=== PATIENT | male | born 1950 | race Caucasian/White ===

== ENCOUNTER 2022-03-05 10:47 | Observation (INO) | payer MEDICARE, OTHER ==
[2022-03-05] MEDS ORDERED: MECLIZINE 25 MG TAB PO STA (11:09)
[2022-03-05 11:31] LABS: Basophils # (A) 0.1 k/uL (0-0.2); Basophils % (A) 1 %; Eosinophils # (A) 0.3 k/uL (0-0.7); Eosinophils % (A) 3 %; HCT 42.6 % (39.0-53.0); HGB 15.4 gm/dL (13.0-17.5); Lymphocytes # (A) 1.7 k/uL (1.0-4.8); Lymphocytes % (A) 19 %; MCH 31.6 pg (25.0-35.0); MCHC 36.1 g/dL (31.0-37.0); MCV 87.4 fL (80.0-100.0); Mean Platelet Volume 7.9; Monocytes # (A) 0.4 k/uL (0-1.0); Monocytes % (A) 4 %; Neutrophils # (A) 6.4 k/uL (1.3-7.7); Neutrophils % (A) 72 %; Platelet Count 175 k/uL (150-450); RBC 4.87 m/uL (4.30-5.90); RDW 13.2 % (11.5-15.5); WBC 8.9 k/uL (3.8-10.6)
[2022-03-05 11:41] LABS: ALT 35 U/L (4-49); AST 28 U/L (17-59); African American GFR (CKD) >90 (>60 ml/min/1.73 sqM); Albumin 4.2 g/dL (3.5-5.0); Alkaline Phosphatase 115 U/L (38-126); Anion Gap 9 mmol/L; Blood Urea Nitrogen 16 mg/dL (9-20); Calcium 8.8 mg/dL (8.4-10.2); Carbon Dioxide 22 mmol/L (22-30); Chloride 109 mmol/L (98-107); Glucose 181 mg/dL (74-99); Magnesium 1.7 mg/dL (1.6-2.3); Non-African American GFR(CKD) 88 (>60 ml/min/1.73 sqM); Potassium 4.6 mmol/L (3.5-5.1); Sodium 140 mmol/L (137-145); Total Bilirubin 1.1 mg/dL (0.2-1.3); Total Protein 6.7 g/dL (6.3-8.2)
--- NOTE | 2022-03-05 11:59 | XR ---
EXAMINATION TYPE: XR chest 2V DATE OF EXAM: 03/05/2022 COMPARISON: Prior chest x-ray 2012 HISTORY: Chest pain TECHNIQUE: Frontal and lateral views of the chest are obtained. FINDINGS: There is chronic parenchymal changes bilaterally redemonstrated without suspicious focal a ir space opacity, pleural effusion, or pneumothorax seen. The cardiac silhouette size is stable and upper limits of normal. Multilevel spurring in thoracic spine redemonstrated. Old fractures of the po sterior right third and fourth ribs are noted. IMPRESSION: Chronic changes without acute pulmonary process.
--- NOTE | 2022-03-05 14:13 | ED ---
General Adult HPI - General Chief complaint: Weakness Stated complaint: weakness Time Seen by Provider: 03/05/22 10:55 Source: patient, RN notes reviewed, old records reviewed Mode of arrival: EMS Limitations: no limitations - History of Present Illness Initial comments: This is a 72-year-old male presents emergency Department complaining of the room spinning. Patient states it started when he woke up this morning. Patient states anytime he moved his head or try to sit up the symptoms got worse per patient states when he tried to stand up he fell to the ground but he did not injure anything. Patient denies any headache currently. Patient states initially had a mild headache but it's much improved. Patient denies any chest pain or palpitations. Patient denies shortness of breath or difficulty breathing. Patient denies any abdominal pain. Patient states she was a little nauseated earlier but that has resolved. Patient states currently the dizziness is not as bad as it was earlier. Patient denies any ringing in ears or any new deafness. - Related Data Home Medications Medication Instructions Recorded Confirmed Atorvastatin [Lipitor] 80 mg PO DAILY 03/05/22 03/05/22 Clopidogrel [Plavix] 75 mg PO DAILY 03/05/22 03/05/22 Dulaglutide [Trulicity] 1.5 mg SQ ORR 03/05/22 03/05/22 Furosemide [Lasix] 40 mg PO DAILY 03/05/22 03/05/22 Gabapentin [Neurontin] 300 mg PO HS 03/05/22 03/05/22 Insulin Glargine,Hum.rec.anlog 55 units SQ HS 03/05/22 03/05/22 [Lantus Solostar Pen] Isosorbide Mononitrate ER [Imdur] 30 mg PO DAILY 03/05/22 03/05/22 Metoprolol Tartrate [Lopressor] 50 mg PO BID 03/05/22 03/05/22 Nitroglycerin Sl Tabs [Nitrostat] 0.4 mg SUBLINGUAL Q5M PRN 03/05/22 03/05/22 Potassium Chloride ER [K-Dur 10] 10 meq PO BID 03/05/22 03/05/22 glipiZIDE [Glucotrol] 10 mg PO DAILY 03/05/22 03/05/22 lisinopriL [Zestril] 20 mg PO DAILY 03/05/22 03/05/22 metFORMIN HCL 1,000 mg PO BID-W/MEALS 03/05/22 03/05/22 Allergies Allergy/AdvReac Type Severity Reaction Status Date / Time No Known Allergies Allergy Verified 03/05/22 12:08 Review of Systems ROS Statement: Those systems with pertinent positive or pertinent negative responses have been documented in the HPI. ROS Other: All systems not noted in ROS Statement are negative. Past Medical History Past Medical History: Heart Failure, COPD, Diabetes Mellitus, Hypertension History of Any Multi-Drug Resistant Organisms: None Reported Past Surgical History: Cholecystectomy, Hernia Repair Past Psychological History: No Psychological Hx Reported Smoking Status: Current every day smoker Past Alcohol Use History: None Reported Past Drug Use History: None Reported General Exam - General Exam Comments Initial Comments: GENERAL: Patient is well-developed and well-nourished. Patient is nontoxic and well- hydrated and is in mild distress. ENT: Neck is soft and supple. No significant lymphadenopathy is noted. Oropharynx is clear. Moist mucous membranes. Neck has full range of motion without eliciting any pain. EYES: The sclera were anicteric and conjunctiva were pink and moist. Extraocular movements were intact and pupils were equal round and reactive to light. Eyelids were unremarkable. PULMONARY: Unlabored respirations. Good breath sounds bilaterally. No audible rales rhonchi or wheezing was noted. CARDIOVASCULAR: There is a regular rate and rhythm without any murmurs gallops or rubs. ABDOMEN: Soft and nontender with normal bowel sounds. SKIN: Skin is clear with no lesions or rashes and otherwise unremarkable. NEUROLOGIC: Patient is alert and oriented x3. Cranial nerves II through XII are grossly intact. Motor and sensory are also intact. Normal speech, volume and content. Symmetrical smile. Finger to nose testing is normal bilaterally MUSCULOSKELETAL: Normal extremities with adequate strength and full range of motion. LYMPHATICS: No significant lymphadenopathy is noted PSYCHIATRIC: Normal psychiatric evaluation. Limitations: no limitations Course Vital Signs 03/05/22 03/05/22 03/05/22 10:49 12:00 14:17 Temperature 97.7 F Pulse Rate 62 72 70 Respiratory 18 18 18 Rate Blood Pressure 135/83 117/70 116/70 O2 Sat by Pulse 100 97 99 Oximetry Medical Decision Making - Medical Decision Making EKG was interpreted by me. EKG shows sinus rhythm at 66 bpm WI interval is 247 QRS is 97 Q-T intervals 390 QTC is 413. EKG shows PVCs. I interpreted the CT of the brain. CT of the brain showed no acute abnormality. Patient received Antivert however it did not help him he was unable to get up and out of bed at all. Patient sat up in bed and became severely dizzy. New. Patient did not feel safe going home so I admitted the patient. I spoke with Dr. Vega he agreed to admit the patient to the patient wrote admitting orders. - Lab Data Result diagrams: 03/05/22 11:03/05/22 11: Lab Results 03/05/22 03/05/22 03/05/22 Range/Units 11: 11: 11: WBC 8.9 (3.8-10.6) k/uL RBC 4.87 (4.30-5.90) m/uL Hgb 15.4 (13.0-17.5) gm/dL Hct 42.6 (39.0-53.0) % MCV 87.4 (80.0-100.0) fL MCH 31.6 (25.0-35.0) pg MCHC 36.1 (31.0-37.0) g/dL RDW 13.2 (11.5-15.5) % Plt Count 175 (150-450) k/uL MPV 7.9 Neutrophils % 72 % Lymphocytes % 19 % Monocytes % 4 % Eosinophils % 3 % Basophils % 1 % Neutrophils # 6.4 (1.3-7.7) k/uL Lymphocytes # 1.7 (1.0-4.8) k/uL Monocytes # 0.4 (0-1.0) k/uL Eosinophils # 0.3 (0-0.7) k/uL Basophils # 0.1 (0-0.2) k/uL PT 11.0 (9.0-12.0) sec INR 1.0 (<1.2) APTT 23.0 (22.0-30.0) sec Sodium 140 (137-145) mmol/L Potassium 4.6 (3.5-5.1) mmol/L Chloride 109 H (98-107) mmol/L Carbon Dioxide 22 (22-30) mmol/L Anion Gap 9 mmol/L BUN 16 (9-20) mg/dL Creatinine 0.86 (0.66-1.25) mg/dL Est GFR (CKD-EPI)AfAm >90 (>60 ml/min/1.73 sqM) Est GFR (CKD-EPI)NonAf 88 (>60 ml/min/1.73 sqM) Glucose 181 H (74-99) mg/dL Calcium 8.8 (8.4-10.2) mg/dL Magnesium 1.7 (1.6-2.3) mg/dL Total Bilirubin 1.1 (0.2-1.3) mg/dL AST 28 (17-59) U/L ALT 35 (4-49) U/L Alkaline Phosphatase 115 (38-126) U/L Troponin I (0.000-0.034) ng/mL Total Protein 6.7 (6.3-8.2) g/dL Albumin 4.2 (3.5-5.0) g/dL 03/05/22 Range/Units 11:22 WBC (3.8-10.6) k/uL RBC (4.30-5.90) m/uL Hgb (13.0-17.5) gm/dL Hct (39.0-53.0) % MCV (80.0-100.0) fL MCH (25.0-35.0) pg MCHC (31.0-37.0) g/dL RDW (11.5-15.5) % Plt Count (150-450) k/uL MPV Neutrophils % % Lymphocytes % % Monocytes % % Eosinophils % % Basophils % % Neutrophils # (1.3-7.7) k/uL Lymphocytes # (1.0-4.8) k/uL Monocytes # (0-1.0) k/uL Eosinophils # (0-0.7) k/uL Basophils # (0-0.2) k/uL PT (9.0-12.0) sec INR (<1.2) APTT (22.0-30.0) sec Sodium (137-145) mmol/L Potassium (3.5-5.1) mmol/L Chloride (98-107) mmol/L Carbon Dioxide (22-30) mmol/L Anion Gap mmol/L BUN (9-20) mg/dL Creatinine (0.66-1.25) mg/dL Est GFR (CKD-EPI)AfAm (>60 ml/min/1.73 sqM) Est GFR (CKD-EPI)NonAf (>60 ml/min/1.73 sqM) Glucose (74-99) mg/dL Calcium (8.4-10.2) mg/dL Magnesium (1.6-2.3) mg/dL Total Bilirubin (0.2-1.3) mg/dL AST (17-59) U/L ALT (4-49) U/L Alkaline Phosphatase (38-126) U/L Troponin I <0.012 (0.000-0.034) ng/mL Total Protein (6.3-8.2) g/dL Albumin (3.5-5.0) g/dL Disposition Clinical Impression: Vertigo Disposition: ADMITTED IP TO THIS [facility] Referrals: Arden Brice MD [Primary Care Provider] - 1-2 days Time of Disposition: 15:07
--- NOTE | 2022-03-05 14:54 | CT ---
EXAMINATION TYPE: CT brain wo con DATE OF EXAM: 03/05/2022 HISTORY: Dizziness CT DLP: 1115.7 mGycm. Automated Exposure Control for Dose Reduction was Utilized. TECHNIQUE: CT scan of the head is performed without contrast. COMPARISON: None. FINDINGS: There is no acute intracranial hemorrhage or midline shift identified. Ventricles and sul ci within normal limits in size for patient's age. Florez-white matter differentiation maintained. The globes are intact and the visualized sinuses are clear. Nasal septum slightly deviated to right of midline. IMPRESSION: No acute intracranial hemorrhage or midline shift.
[2022-03-05] MEDS ORDERED: SCOPOLAMINE 1 MG/72 HR PATCH TRANSDERM STA (15:00)
[2022-03-05] MEDS ORDERED: SODIUM CHLORIDE 0.9% 1,000 ML IV ONE (15:09)
[2022-03-05] MEDS ORDERED: MECLIZINE 25 MG TAB PO PRN (15:10)
[2022-03-05 17:53] LABS: Glucose,Whole Blood 181 mg/dL (70-110)
[2022-03-05] MEDS ORDERED: NITROGLYCERIN SL TABS 0.4 MG TAB SUBLINGUAL PRN (18:05)
[2022-03-05] MEDS ORDERED: DEXTROSE 50% SYRINGE 50 ML IVP PRN ×2 (18:06)
[2022-03-05] MEDS: INSULIN ASPART (NovoLOG) 100 UNIT/ML VIAL SQ SCH ×2 (18:44→20:30)
[2022-03-05 20:16] LABS: Glucose,Whole Blood 168 mg/dL (70-110)
[2022-03-05] MEDS: INSULIN DETEMIR (LEVEMIR) 100 UNIT/ML SYR SQ SCH (21:14)
[2022-03-05] MEDS: METOPROLOL TARTRATE 50 MG TAB PO SCH (21:15)
[2022-03-05] MEDS: POTASSIUM CHLORIDE ER 10 MEQ TAB.ER.PRT PO SCH (21:15)
[2022-03-05] MEDS: GABAPENTIN 300 MG CAP PO SCH (21:15)
[2022-03-06 06:04] LABS: Glucose,Whole Blood 137 mg/dL (70-110)
[2022-03-06] MEDS: INSULIN ASPART (NovoLOG) 100 UNIT/ML VIAL SQ SCH ×4 (06:08→21:44)
[2022-03-06] MEDS: FUROSEMIDE 40 MG TAB PO SCH (09:22)
[2022-03-06] MEDS: CLOPIDOGREL 75 MG TAB PO SCH (09:22)
[2022-03-06] MEDS: POTASSIUM CHLORIDE ER 10 MEQ TAB.ER.PRT PO SCH ×2 (09:22→21:43)
[2022-03-06] MEDS: METOPROLOL TARTRATE 50 MG TAB PO SCH ×2 (09:22→21:43)
[2022-03-06] MEDS: ISOSORBIDE MONONITRATE ER 30 MG TAB.ER.24H PO SCH (09:22)
[2022-03-06] MEDS: glipiZIDE 10 MG TAB PO SCH (09:23)
[2022-03-06] MEDS: ATORVASTATIN 80 MG TAB PO SCH (09:23)
[2022-03-06] MEDS: lisinopriL 20 MG TAB PO SCH (09:23)
[2022-03-06] MEDS: metFORMIN 500 MG TAB PO SCH ×2 (09:29→19:25)
--- NOTE | 2022-03-06 10:04 | P.CRDCN ---
History of Present Illness History of present illness: HISTORY OF PRESENTING ILLNESS This is a pleasant 72-year-old male past medical history significant for coronary artery disease status post PCI to the first obtuse marginal branch of the left circumflex, mid left circumflex, mid RCA in 2013, type 2 diabetes, hypertension, dyslipidemia, COPD, chronic nicotine dependence. He used to follow with a eyeglass inspector out of town however states that his eyeglass inspector retired a few years ago and has not followed up with someone since. We have been asked to see in consultation for first-degree AV block. Patient presents emergency department with dizziness and speech difficulty episode. She states yesterday morning he had acute onset of dizziness when he stood up. The room was spinning. It was aggravated by ambulating and walking. Also was aggravated by moving his head from side to side. He also endorsed some brief speech difficulty where he felt as if he could not get his words out. He denies any syncope, chest pain, shortness of breath, palpitations, hearing difficulty, focal weakness. He denies any history of Stroke, irregular heart rhythm. DIAGNOSTICS * EKG reveals sinus rhythm, first-degree AV block, occasional PVC. * Telemetry tracings indicate sinus rhythm with first-degree AV block and PACs and PVCs noted * Brain CT report in no acute intracranial abnormality * Chest xray no acute cardiopulmonary process * Laboratory reviewed, CBC unremarkable, troponin negative, sodium 140, potassium 4.6, BUN 16, serum creatinine 0.8 * Current home medications include metformin, potassium chloride, when necessary nitroglycerin, =Trulicity, lisinopril, metoprolol tartrate 51 g PAD, glipizide, Imdur, insulin, gabapentin, Lasix, Plavix 75 mg daily, atorvastatin 80 mg daily REVIEW OF SYSTEMS At the time of my exam: CONSTITUTIONAL: Denies fever or chills. CARDIOVASCULAR: Denies chest pain, shortness of breath, orthopnea, PND or palpit ations. RESPIRATORY: Denies cough. GASTROINTESTINAL: Denies abdominal pain, diarrhea, constipation, nausea or vomiting. MUSCULOSKELETAL: Denies myalgias. NEUROLOGIC: +dizziness, +speech difficulty brief Denies numbness, tingling, headacbe or weakness. ENDOCRINE: Denies fatigue, weight change, polydipsia or polyurina. GENITOURINARY: Denies burning, hematuria or urgency with micturation. HEMATOLOGIC: Denies history of anemia or bleeding. PHYSICAL EXAMINATION Blood pressure 124/69, heart 73, afebrile, saturations 96% on room air CONSTITUTIONAL: No apparent distress. HEENT: Head is normocephalic. Pupils are equal, round. Sclerae anicteric. Mucous membranes of the mouth are moist. No JVD. No carotid bruit. CHEST EXAMINATION: Lungs are clear to auscultation. No chest wall tenderness is noted on palpation or with deep breathing. HEART EXAMINATION: Regular rate and rhythm. S1, S2 heard. No murmurs, gallops or rub. ABDOMEN: Soft, nontender. Positive bowel sounds. EXTREMITIES: 2+ peripheral pulses, no lower extremity edema and no calf tenderness. NEUROLOGIC EXAMINATION: Patient is awake, alert and oriented x3. Patient with increased dizziness sitting up and moving his head from side to side ASSESSMENT Dizziness Brief episode of aphasia First degree AV Block Coronary artery disease status post PCI to the first obtuse marginal branch of the left circumflex, mid left circumflex, mid RCA in 2012 Type 2 diabetes Hypertension Dyslipidemia COPD Chronic nicotine dependence PLAN No inpatient cardiac workup for first degree AV Block. Continue home cardiac medications Recommend neurology consult and evaluation Obtain 2D echocardiogram and doppler study to assess cardiac structure and function. Recommend close follow up outpatient with Dr. Carranza in 1-2 weeks. Nurse practitioner note has been reviewed by physician. Signing provider agrees with the documented findings, assessment, and plan of care. Past Medical History Past Medical History: Heart Failure, COPD, Diabetes Mellitus, Hypertension History of Any Multi-Drug Resistant Organisms: None Reported Past Surgical History: Cholecystectomy, Heart Catheterization With Stent, Hernia Repair Date of Last Stent Placement:: 2012 Past Psychological History: No Psychological Hx Reported Smoking Status: Current every day smoker Past Alcohol Use History: None Reported Past Drug Use History: None Reported Medications and Allergies Home Medications Medication Instructions Recorded Confirmed Type Atorvastatin [Lipitor] 80 mg PO DAILY 03/05/22 03/05/22 History Clopidogrel [Plavix] 75 mg PO DAILY 03/05/22 03/05/22 History Dulaglutide [Trulicity] 1.5 mg SQ ORR 03/05/22 03/05/22 History Furosemide [Lasix] 40 mg PO DAILY 03/05/22 03/05/22 History Gabapentin [Neurontin] 300 mg PO HS 03/05/22 03/05/22 History Insulin Glargine,Hum.rec.anlog 55 units SQ HS 03/05/22 03/05/22 History [Lantus Solostar Pen] Isosorbide Mononitrate ER [Imdur] 30 mg PO DAILY 03/05/22 03/05/22 History Metoprolol Tartrate [Lopressor] 50 mg PO BID 03/05/22 03/05/22 History Nitroglycerin Sl Tabs [Nitrostat] 0.4 mg SUBLINGUAL Q5M PRN 03/05/22 03/05/22 History Potassium Chloride ER [K-Dur 10] 10 meq PO BID 03/05/22 03/05/22 History glipiZIDE [Glucotrol] 10 mg PO DAILY 03/05/22 03/05/22 History lisinopriL [Zestril] 20 mg PO DAILY 03/05/22 03/05/22 History metFORMIN HCL 1,000 mg PO BID-W/MEALS 03/05/22 03/05/22 History Allergies Allergy/AdvReac Type Severity Reaction Status Date / Time No Known Allergies Allergy Verified 03/05/22 12:08 Physical Exam Vitals: Vital Signs Temp Pulse Pulse Resp BP BP Pulse Ox 03/06/22 02:13 98.0 F 69 18 107/69 96 03/05/22 20:19 98.6 F 89 19 127/79 97 03/05/22 16:32 87 18 119/73 98 03/05/22 14:17 70 18 116/70 99 03/05/22 12:00 72 18 117/70 97 03/05/22 10:49 97.7 F 62 18 135/83 100 Intake and Output 03/05/22 03/06/22 03/06/22 22:59 06:59 14:59 Output Total 300 Balance -300 Output: Urine 300 Other: Voiding Method Urinal # Voids 1 Weight 112.491 kg Results 03/05/22 11:22 03/05/22 11: Cardiac Enzymes 03/05/22 03/05/22 Range/Units 11:22 11: AST 28 (17-59) U/L Troponin I <0.012 (0.000-0.034) ng/mL Coagulation 03/05/22 Range/Units 11: PT 11.0 (9.0-12.0) sec APTT 23.0 (22.0-30.0) sec CBC 03/05/22 Range/Units 11: WBC 8.9 (3.8-10.6) k/uL RBC 4.87 (4.30-5.90) m/uL Hgb 15.4 (13.0-17.5) gm/dL Hct 42.6 (39.0-53.0) % Plt Count 175 (150-450) k/uL Comprehensive Metabolic Panel 03/05/22 Range/Units 11: Sodium 140 (137-145) mmol/L Potassium 4.6 (3.5-5.1) mmol/L Chloride 109 H (98-107) mmol/L Carbon Dioxide 22 (22-30) mmol/L BUN 16 (9-20) mg/dL Creatinine 0.86 (0.66-1.25) mg/dL Glucose 181 H (74-99) mg/dL Calcium 8.8 (8.4-10.2) mg/dL AST 28 (17-59) U/L ALT 35 (4-49) U/L Alkaline Phosphatase 115 (38-126) U/L Total Protein 6.7 (6.3-8.2) g/dL Albumin 4.2 (3.5-5.0) g/dL Current Medications Generic Name Dose Route Start Last Admin Trade Name Freq PRN Reason Stop Dose Admin Atorvastatin Calcium 80 mg 03/06/22 09:00 Atorvastatin 80 Mg Tab PO DAILY [facility] Clopidogrel Bisulfate 75 mg 03/06/22 09:00 Clopidogrel 75 Mg Tab PO DAILY [facility] Dextrose/Water 25 ml 03/05/22 18:06 Dextrose 50% Syringe 50 Ml IVP PER PROTOCOL PRN Hypoglycemia Protocol Dextrose/Water 50 ml 03/05/22 18:06 Dextrose 50% Syringe 50 Ml IVP PER PROTOCOL PRN Hypoglycemia Protocol Furosemide 40 mg 03/06/22 09:00 Furosemide 40 Mg Tab PO DAILY [facility] Gabapentin 300 mg 03/05/22 21:00 03/05/22 21:15 Gabapentin 300 Mg Cap PO 300 mg HS [facility] Administration Glipizide 10 mg 03/06/22 09:00 Glipizide 10 Mg Tab PO DAILY [facility] Insulin Aspart 0 unit 03/05/22 18:06 03/06/22 06:08 Insulin Aspart (Novolog) 100 Unit/Ml Vial SQ Not Given ACHS [facility] Protocol Insulin Detemir 55 unit 03/05/22 21:00 03/05/22 21:14 Insulin Detemir (Levemir) 100 Unit/Ml Syr SQ 55 unit HS [facility] Administration Isosorbide Mononitrate 30 mg 03/06/22 09:00 Isosorbide Mononitrate Er 30 Mg Tab.Er.24h PO DAILY [facility] Lisinopril 20 mg 03/06/22 09:00 Lisinopril 20 Mg Tab PO DAILY [facility] Meclizine HCl 25 mg 03/05/22 15:10 Meclizine 25 Mg Tab PO TID PRN Vertigo Metformin HCl 1,000 mg 03/06/22 07:30 Metformin 500 Mg Tab PO BID-W/MEALS [facility]YANNA Metoprolol Tartrate 50 mg 03/05/22 21:00 03/05/22 21:15 Metoprolol Tartrate 50 Mg Tab PO 50 mg BID [facility]AN[facility] Administration Nitroglycerin 0.4 mg 03/05/22 18:05 Nitroglycerin Sl Tabs 0.4 Mg Tab SUBLINGUAL Q5M PRN Chest Pain Dulaglutide [ 1.5 mg 03/10/22 09:00 Trulicity] 1.5 Mg/0. SQ 5 Ml ORR [facility] Potassium Chloride 10 meq 03/05/22 21:00 03/05/22 21:15 Potassium Chloride Er 10 Meq Tab.Er.Prt PO 10 meq BID [facility]AN[facility] Administration Intake and Output 03/05/22 03/06/22 03/06/22 22:59 06:59 14:59 Output Total 300 Balance -300 Output: Urine 300 Other: Voiding Method Urinal # Voids 1 Weight 112.491 kg 03/05/22 11:22 03/05/22 11:22
[2022-03-06 12:18] LABS: Glucose,Whole Blood 272 mg/dL (70-110)
--- NOTE | 2022-03-06 12:32 | US ---
EXAMINATION TYPE: US carotid duplex BILAT DATE OF EXAM: 03/06/2022 COMPARISON: NONE CLINICAL HISTORY: 72-year-old male, ?TIA, vertigo, no history of stroke TECHNIQUE: Carotid duplex ultrasound examination. Indirect Doppler criteria was utilized. FINDINGS: EXAM MEASUREMENTS: RIGHT: Peak Systolic Velocity (PSV) cm/sec ----- Right CCA: 89.2 ----- Right ICA: 87.8 ----- Right ECA: 93.6 ICA/CCA ratio: 1.0 RIGHT: End Diastole cm/sec ----- Right CCA: 13.3 ----- Right ICA: 27.6 ----- Right ECA: 8.1 LEFT: Peak Systolic Velocity (PSV) cm/sec ----- Left CCA: 99.3 ----- Left ICA: 94.5 ----- Left ECA: 82.3 ICA/CCA ratio: 1.0 LEFT: End Diastole cm/sec ----- Left CCA: 14.6 ----- Left ICA: 29.1 ----- Left ECA: 9.0 VERTEBRALS (direction of flow): Right Vertebral: Antegrade Left Vertebral: Antegrade Rhythm: Normal PROMOTIONS SPECIALIST NOTES: mild heterogeneous plaque with no significant stenosis IMPRESSION: No hemodynamically significant internal carotid artery stenosis on either side. Criteria for Assigning % of Stenosis / Diameter reduction (Estimation based on the indirect measurements of the internal carotid artery velocities (ICA PSV). 1. Normal (no stenosis)=ICA PSV < 125 cm/s: ratio < 2.0: ICA EDV<40 cm/s. 2. Less than 50% stenosis=ICA PSV < 125 cm/s: ratio < 2.0: ICA EDV<40 cm/s. 3. 50 to 69% stenosis=ICA PSV of 125 to 230 cm/s: ration 2.0 ? 4.0: ICA EDV 40-100 cm/s. 4. Greater than 70% stenosis to near occlusion= ICA PSV > 230 cm/s: ratio > 4.0: ICA EDV > 100 cm/s. 5. Near occlusion= ICA PSV velocities may be low or undetectable: variable ratio and ICA EDV. 6. Total occlusion=unable to detect flow.
[2022-03-06] MEDS: ASPIRIN 81 MG PO SCH (13:10)
--- NOTE | 2022-03-06 13:31 | MR ---
EXAMINATION TYPE: MR brain wo con DATE OF EXAM: 03/06/2022 12:54 PM COMPARISON: NONE HISTORY: Vertigo, ?STROKE/TIA FINDINGS: The ventricles, basal cisterns and sulci overlying the cerebral convexities are mildly enlarged. There is evidence of mild periventricular white matter ischemic demyelination. Remote deep white matter insults are also noted. No acute edema is seen on diffusion weighted imaging. There is no evidence for midline shift or mass effect. Acute intracranial hemorrhage or extra-axial collection is not evident. The paranasal sinuses and mastoid air cells are well-aerated. IMPRESSION: Age-related atrophic and chronic small vessel ischemic change. No acute intracranial process at this time.
--- NOTE | 2022-03-06 15:48 | P.CNNES ---
History of Present Illness Consult date: 03/06/22 Requesting physician: Deangelo Baez Reason for Consult: Intractable vertigo History of Present Illness: Patient is a 72-year-old male with history of hypertension, diabetes, who came to the hospital by ambulance yesterday at 10:47 PM for vertigo. Patient states that the night before the last, he went to bed at 9 PM in usual state of health. Yesterday at 4 AM he tried to get up to go to the bathroom and felt very dizzy, everything was spinning, he fell back in the bed. He had to go to the bathroom, tried to hold onto the plummer, and fell 4-5 times while going to and coming back from the bathroom. He laid in the bed until 9 AM, then called his [id number], who called the ambulance and patient was brought to the hospital. Patient says that he continued spinning, couldn't hold balance and the spinning was continuous. EMS flow sheet not available in the chart. Vital signs on arrival with blood pressure 135/83, pulse rate 62 temperature 97.7. Blood test shows normal CBC, PT/PTT, normal chem 20, troponin. CT head revealed no acute intracranial process. I personally reviewed CT head, agree with the findings. Visualized paranasal sinuses are clear. External auditory canal is clear. EKG shows sinus rhythm with first-degree AV block. Chest x-ray showed chronic changes without acute pulmonary process. Patient states that his symptoms started improving slowly yesterday. He is much better this morning on waking up. At present patient states that he is doing much better, but he still gets dizzy, if he gets up too fast. Not as bad as before however. He denies any numbness or tingling of the extremities or any focal weakness. He admitted to having some slurred speech "a little bit", but not bad. He also admits to having some double vision, which was transient, lasted for about 2 minutes. He had nausea but no vomiting. Patient states that now he can sit and stand up, becomes dizzy for a short while and then it goes away. He denies any recent upper respiratory infection or cold symptoms. He denies ever any history of vertigo. Denies any pressure or pain in the ears. He gets tinnitus once in a while. Patient's home medications include Trulicity, Glucotrol, lisinopril, metoprolol, Lipitor 80 mg, Plavix 75 mg, Lasix 40 mg, gabapentin 300 mg at bedtime, insulin, isosorbide, metformin, potassium. Patient states that he also takes aspirin 81 mg daily along with Plavix. Patient smokes 2-3 cigars per day and 2 pipes per day. He has been doing it for last 3-4 years. Denies any tobacco use otherwise. Patient does not drink alcohol, does not do any drugs. He has history of diabetes for last 10-14 years, also has hypertension. Review of Systems Constitutional: Denies chills, Denies fever Eyes: bilateral diplopia (Transient, resolved now.), denies blurred vision, denies pain Ears, nose, mouth and throat: Denies headache, Denies sore throat Cardiovascular: Denies chest pain, Denies shortness of breath Respiratory: Denies cough Gastrointestinal: Denies abdominal pain, Denies diarrhea, Denies nausea, Denies vomiting Musculoskeletal: Denies myalgias Integumentary: Denies pruritus, Denies rash Neurological: Reports as per HPI Psychiatric: Denies anxiety, Denies depression Endocrine: Denies fatigue, Denies weight change Past Medical History Past Medical History: Heart Failure, COPD, Diabetes Mellitus, Hypertension History of Any Multi-Drug Resistant Organisms: None Reported Past Surgical History: Cholecystectomy, Heart Catheterization With Stent, Hernia Repair Date of Last Stent Placement:: 2012 Past Psychological History: No Psychological Hx Reported Smoking Status: Current every day smoker Past Alcohol Use History: None Reported Past Drug Use History: None Reported Medications and Allergies Home Medications Medication Instructions Recorded Confirmed Type Atorvastatin [Lipitor] 80 mg PO DAILY 03/05/22 03/05/22 History Clopidogrel [Plavix] 75 mg PO DAILY 03/05/22 03/05/22 History Dulaglutide [Trulicity] 1.5 mg SQ ORR 03/05/22 03/05/22 History Furosemide [Lasix] 40 mg PO DAILY 03/05/22 03/05/22 History Gabapentin [Neurontin] 300 mg PO HS 03/05/22 03/05/22 History Insulin Glargine,Hum.rec.anlog 55 units SQ HS 03/05/22 03/05/22 History [Lantus Solostar Pen] Isosorbide Mononitrate ER [Imdur] 30 mg PO DAILY 03/05/22 03/05/22 History Metoprolol Tartrate [Lopressor] 50 mg PO BID 03/05/22 03/05/22 History Nitroglycerin Sl Tabs [Nitrostat] 0.4 mg SUBLINGUAL Q5M PRN 03/05/22 03/05/22 History Potassium Chloride ER [K-Dur 10] 10 meq PO BID 03/05/22 03/05/22 History glipiZIDE [Glucotrol] 10 mg PO DAILY 03/05/22 03/05/22 History lisinopriL [Zestril] 20 mg PO DAILY 03/05/22 03/05/22 History metFORMIN HCL 1,000 mg PO BID-W/MEALS 03/05/22 03/05/22 History Allergies Allergy/AdvReac Type Severity Reaction Status Date / Time No Known Allergies Allergy Verified 03/05/22 12:08 Physical Examination - Vital Signs Vital Signs: Vital Signs Temp Pulse Pulse Resp BP BP Pulse Ox 03/06/22 07:00 99.1 F 73 18 124/69 96 03/06/22 02:13 98.0 F 69 18 107/69 96 03/05/22 20:19 98.6 F 89 19 127/79 97 03/05/22 16:32 87 18 119/73 98 03/05/22 14:17 70 18 116/70 99 03/05/22 12:00 72 18 117/70 97 03/05/22 10:49 97.7 F 62 18 135/83 100 Intake and Output 03/05/22 03/06/22 03/06/22 22:59 06:59 14:59 Output Total 300 Balance -300 Output: Urine 300 Other: Voiding Method Urinal # Voids 1 Weight 112.491 kg Patient is an elderly male, in no acute distress. Patient is alert awake oriented to time place and person. Speech and language functions are normal. Patient can name and repeat very well. No aphasia or dysarthria. Attention, concentration and fund of knowledge is adequate. On cranial nerve examination, pupils are equal, round and reacting to light, visual perales are full on confrontation, with no neglect on double simultaneous stimulation. Extraocular muscles are intact with no nystagmus. Face is symmetric, tongue protrudes to the midline. Palatal elevation and sensation normal, hearing and shoulder shrug normal, facial sensation normal. On muscle strength testing, there is no pronator drift and the strength is normal in arms and legs distally and proximally. Deep tendon reflexes are symmetric, hypoactive and plantars are downgoing bilaterally. Sensory to touch is equal with no neglect on double simultaneous stimulation. Cerebellar function showed no ataxia for [id number] testing. No dysdiadochokinesia. No ataxia for aead-qu-yfwf testing on either side. Tone and bulk of muscles normal. Gait deferred.. On general examination, there is no carotid bruit or murmur, S1-S2 audible. Chest is clear on consultation. Abdomen is soft nontender. No organomegaly, bowel sounds present. Peripheral pulses are present. No edema. Results - Laboratory Findings CBC and BMP: 03/05/22 11:03/05/22 11: Abnormal Lab Findings: Abnormal Labs 03/05/22 03/05/22 03/05/22 17:47 20:15 Chloride 109 H Glucose 181 H POC Glucose (mg/dL) 181 H 168 H 03/06/22 06:02 Chloride Glucose POC Glucose (mg/dL) 137 H Assessment and Plan Assessment: * Acute onset of vertigo, with nausea, that lasted for several hours. Symptoms have remarkably improved. Although symptoms are suggestive of possible l abyrinthitis, however patient admits to having transient slurred speech and transient diplopia, which raises concern for TIA in the posterior circulation. * Diabetes * Hypertension Plan: * Patient does have multiple vascular risk factors. We will check MRI of the brain to rule out CVA. * Carotid Doppler, rule out stenosis. * 2-D echo rule out embolic source. * Hemoglobin A1c, fasting lipid panel * B12, folate. * Telemetric monitoring. * Patient is already taking dual antiplatelet medication including aspirin 81 mg and Plavix 75 mg. These will be continued pending above test results. * Suggest meclizine as needed for dizziness/vertigo. * Neurology will follow. Thank you for the consult.
--- NOTE | 2022-03-06 17:36 | P.HPIM ---
History of Present Illness H&P Date: 03/06/22 Chief Complaint: Head spinning This is a pleasant 72-year-old patient, follows with Dr. Brice. Chronic stable medical conditions include CHF EF not known, COPD, diabetes, hypertension, CAD with stent. Patient suddenly noticed that things are spinning around. He had some slurring of speech. Last her for a few hours. Could not walk. No ringing in the ears. No change in vision. Finally settled down. Computed tomography scan of the ER unremarkable. Feeling better this morning. Able to walk to the bathroom. Neurology consulted. 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 No alcohol. Smokes 2-3 cigars a day. Physical examination: VITAL SIGNS: 97.7, 62, 18, 135/83, 100% on room air GENERAL: BMI 34.6, sitting on edge of the bed awake, tired. EYES: Pupils equal. Conjunctiva normal. HEENT: External appearance of nose and ears normal, oral cavity grossly normal. NECK: JVD not raised; masses not palpable. HEART: First and second heart sounds are normal; no edema. LUNGS: Respiratory rate normal; clear to auscultation. ABDOMEN: Soft, nontender, liver spleen not palpable, no masses palpable. PSYCH: Alert and oriented x3; mood and affect normal. MUSCULOSKELETAL:No Clubbing/cyanosis;muscles-grossly intact, evidence of OA NEUROLOGICAL: Cranial nerves grossly intact; no facial asymmetry, power and sensation grossly intact. LYMPHATICS: No lymph nodes palpable in the axilla and neck INVESTIGATIONS, reviewed in the clinical context: WBC 8.9 hemoglobin 15.4 platelets 175 potassium 4.6 creatinine 0.86 Troponin I less than 0.012 EKG tracing personally reviewed by me-normal sinus rhythm. PVC. First-degree AV block. Chest x-ray film personally reviewed by me-no obvious infiltrate CT brain: Unremarkable Assessment and plan: -Patient presented with acute onset of severe vertigo. Patient is not even able to walk. Worse with movement. This could be acute labyrinthitis. Posterior circulation cerebellar ischemia to be ruled out. No clinical cerebellar signs. Carotid Doppler. Neuro checks. MRI brain. Neurology consult. -Hyperlipidemia Lipitor -CAD with stent Plavix, Lopressor -Diabetic peripheral neuropathy Neurontin -Diabetes mellitus type 2, chronically on insulin Lantus. Follow sliding scale insulin. trulicity. Metformin -Essential hypertension Lopressor, Zestril Resume home medications. Accu-Cheks. Sliding scale. MRI brain. Carotid Doppler. Consultation to neurology oncology. 2-D echo. Antivert when necessary. Care was discussed with the patient. Questions answered. Past Medical History Past Medical History: Heart Failure, COPD, Diabetes Mellitus, Hypertension History of Any Multi-Drug Resistant Organisms: None Reported Past Surgical History: Cholecystectomy, Heart Catheterization With Stent, Hernia Repair Date of Last Stent Placement:: 2012 Past Psychological History: No Psychological Hx Reported Smoking Status: Current every day smoker Past Alcohol Use History: None Reported Past Drug Use History: None Reported Medications and Allergies Home Medications Medication Instructions Recorded Confirmed Type Atorvastatin [Lipitor] 80 mg PO DAILY 03/05/22 03/05/22 History Clopidogrel [Plavix] 75 mg PO DAILY 03/05/22 03/05/22 History Dulaglutide [Trulicity] 1.5 mg SQ ORR 03/05/22 03/05/22 History Furosemide [Lasix] 40 mg PO DAILY 03/05/22 03/05/22 History Gabapentin [Neurontin] 300 mg PO HS 03/05/22 03/05/22 History Insulin Glargine,Hum.rec.anlog 55 units SQ HS 03/05/22 03/05/22 History [Lantus Solostar Pen] Isosorbide Mononitrate ER [Imdur] 30 mg PO DAILY 03/05/22 03/05/22 History Metoprolol Tartrate [Lopressor] 50 mg PO BID 03/05/22 03/05/22 History Nitroglycerin Sl Tabs [Nitrostat] 0.4 mg SUBLINGUAL Q5M PRN 03/05/22 03/05/22 History Potassium Chloride ER [K-Dur 10] 10 meq PO BID 03/05/22 03/05/22 History glipiZIDE [Glucotrol] 10 mg PO DAILY 03/05/22 03/05/22 History lisinopriL [Zestril] 20 mg PO DAILY 03/05/22 03/05/22 History metFORMIN HCL 1,000 mg PO BID-W/MEALS 03/05/22 03/05/22 History Allergies Allergy/AdvReac Type Severity Reaction Status Date / Time No Known Allergies Allergy Verified 03/05/22 12:08 Physical Exam Vitals: Vital Signs Temp Pulse Pulse Resp BP BP Pulse Ox 03/06/22 07:00 99.1 F 73 18 124/69 96 03/06/22 02:13 98.0 F 69 18 107/69 96 03/05/22 20:19 98.6 F 89 19 127/79 97 03/05/22 16:32 87 18 119/73 98 03/05/22 14:17 70 18 116/70 99 03/05/22 12:00 72 18 117/70 97 Intake and Output 03/05/22 03/06/22 03/06/22 22:59 06:59 14:59 Output Total 300 Balance -300 Output: Urine 300 Other: Voiding Method Urinal # Voids 1 Weight 112.491 kg Results CBC & Chem 7: 03/05/22 11:22 03/05/22 11:22 Labs: Abnormal Lab Results - Last 24 Hours (Table) 03/05/22 03/05/22 03/05/22 Range/Units 11: 17:47 20:15 Chloride 109 H (98-107) mmol/L Glucose 181 H (74-99) mg/dL POC Glucose (mg/dL) 181 H 168 H (70-110) mg/dL 03/06/22 Range/Units 06:02 Chloride (98-107) mmol/L Glucose (74-99) mg/dL POC Glucose (mg/dL) 137 H (70-110) mg/dL
[2022-03-06 17:40] LABS: Glucose,Whole Blood 112 mg/dL (70-110)
[2022-03-06] MEDS: ENOXAPARIN 40 MG/0.4 ML SYRINGE SQ SCH (19:25)
[2022-03-06 21:07] LABS: Glucose,Whole Blood 167 mg/dL (70-110)
--- NOTE | 2022-03-06 21:18 | CA ---
Transthoracic Echo Report Name: Jose Alejandro Martines Age: 72 Gender: M : 1950 Exam Date: 03/06/2022 10:41 Exam Location: [facility] Ht (in): 64 Wt (lb): 248 Ordering Physician: Flory Greene Attending/Referring Phys: Health Educator Berta Asher, NICK Procedure CPT: Indications: LV function, workup for TIA vs vertigo Cardiac Hx: Technical Quality: Technically difficult study Contrast 1: Lumason Total Dose (mL): 4 Contrast 2: Total Dose (mL): MEASUREMENTS (Male / Female) Normal Values 2D ECHO LV Diastolic Diameter PLAX 4.6 cm 4.2 - 5.9 / 3.9 - 5.3 cm LV Systolic Diameter PLAX 3.4 cm IVS Diastolic Thickness 1.2 cm 0.6 - 1.0 / 0.6 - 0.9 cm LVPW Diastolic Thickness 1.6 cm 0.6 - 1.0 / 0.6 - 0.9 cm LV Relative Wall Thickness 0.6 RV Internal Dim ED PLAX 2.3 cm LA Systolic Diameter LX 4.3 cm 3.0 - 4.0 / 2.7 - 3.8 cm M-MODE Aortic Root Diameter MM 4.0 cm LA Systolic Diameter MM 3.0 cm LA Ao Ratio MM 0.7 MV E Point Septal Separation 0.5 cm AV Cusp Separation MM 2.0 cm FINDINGS Left Ventricle Mildly increased septal wall thickness. Left ventricular ejection fraction is estimated at 55 %. Left ventricular cavity size normal. Right Ventricle Normal right ventricular size and function. Right ventricular systolic pressure within normal limits. Right Atrium Normal right atrial size. Left Atrium Mildly increased left atrial diameter. Mitral Valve Structurally normal mitral valve. Mild mitral regurgitation. Aortic Valve Trileaflet aortic valve. Tricuspid Valve Structurally normal tricuspid valve. Mild tricuspid regurgitation. Pulmonic Valve Pulmonic valve not well visualized. Pericardium Echo free space anterior to the right ventricle likely represents a fat pad. Aorta Normal size aortic root and proximal ascending aorta. CONCLUSIONS Normal LV size and systolic function. Mild mitral and tricuspid insufficiency. No clearcut evidence of pericardial effusion. Possible fat pad Previewed by: Dr. Neptali Carranza MD (Electronically Signed) Final Date: 06 March 2022 21:17
[2022-03-06] MEDS: GABAPENTIN 300 MG CAP PO SCH (21:43)
[2022-03-06] MEDS: INSULIN DETEMIR (LEVEMIR) 100 UNIT/ML SYR SQ SCH ×2 (21:43→21:48)
[2022-03-07 03:24] VITALS: RESP 17
[2022-03-07 06:24] LABS: Glucose,Whole Blood 147 mg/dL (70-110)
[2022-03-07] MEDS: INSULIN ASPART (NovoLOG) 100 UNIT/ML VIAL SQ SCH (06:28)
[2022-03-07] MEDS: metFORMIN 500 MG TAB PO SCH (06:34)
--- NOTE | 2022-03-07 09:48 | P.PN ---
Subjective This is a pleasant 72-year-old male past medical history significant for coronary artery disease status post PCI to the first obtuse marginal branch of the left circumflex, mid left circumflex, mid RCA in 2013, type 2 diabetes, hypertension, dyslipidemia, COPD, chronic nicotine dependence. He used to follow with a iron piler out of town however states that his iron piler retired a few years ago and has not followed up with someone since. We have been asked to see in consultation for first-degree AV block. Patient presents emergency department with dizziness and speech difficulty episode. She states yesterday morning he had acute onset of dizziness when he stood up. The room was spinning. It was aggravated by ambulating and walking. Also was aggravated by moving his head from side to side. He also endorsed some brief speech diff iculty where he felt as if he could not get his words out. He denies any syncope, chest pain, shortness of breath, palpitations, hearing difficulty, focal weakness. He denies any history of Stroke, irregular heart rhythm. 03/07/2022 Patient seen and examined at bedside, no acute distress. He states his dizziness has resolved. Telemetry reviewed patient continues to be in sinus rhythm with first degree AV block. Blood pressure 119/73, heart rate 87 Echocardiogram revealed EF 55%, mild mitral regurgitation, mild tricuspid regurgitation, carotid ultrasound reported no hemodynamically significant internal carotid artery stenosis bilaterally. MRI of the brain reported no acute intracranial abnormality. PHYSICAL EXAMINATION Vitals reviewed CONSTITUTIONAL: No apparent distress. HEENT: Head is normocephalic. No JVD. CHEST EXAMINATION: Lungs are clear to auscultation. No chest wall tenderness is noted on palpation or with deep breathing. HEART EXAMINATION: Regular rate and rhythm. S1, S2 heard. No murmurs, gallops or rub. ABDOMEN: Soft, nontender. Positive bowel sounds. EXTREMITIES: 2+ peripheral pulses, no lower extremity edema and no calf tenderness. NEUROLOGIC EXAMINATION: Patient is awake, alert and oriented x3. Patient with increased dizziness sitting up and moving his head from side to side ASSESSMENT Dizziness Brief episode of aphasia First degree AV Block Coronary artery disease status post PCI to the first obtuse marginal branch of the left circumflex, mid left circumflex, mid RCA in 2012 Type 2 diabetes Hypertension Dyslipidemia COPD Chronic nicotine dependence PLAN No inpatient cardiac workup for first degree AV Block. Continue home cardiac medications. Echocardiogram obtained and reviewed No further inpatient workup from a cardiology perspective. Recommend close follow up with a iron piler outpatient, patient may follow up with Dr. Carranza in 1-2 weeks. We will follow the patient as needed. Please reconsult if needed. Nurse practitioner note has been reviewed by physician. Signing provider agrees with the documented findings, assessment, and plan of care. Objective - Vital Signs Vital signs: Vital Signs Temp 97.8 F 03/07/22 02:55 Pulse 69 03/07/22 02:55 Resp 17 03/07/22 02:55 BP 105/64 03/07/22 02:55 Pulse Ox 95 03/07/22 02:55 FiO2 Intake & Output 03/06/22 03/07/22 03/07/22 18:59 06:59 18:59 Output Total 250 Balance -250 Output: Urine 250 Other: Voiding Method Urinal # Voids 2 1 - Labs CBC & Chem 7: 03/05/22 11:22 03/05/22 11:22 Labs: Abnormal Lab Results - Last 24 Hours (Table) 03/06/22 03/06/22 03/06/22 Range/Units 12:15 17:33 21:06 POC Glucose (mg/dL) 272 H 112 H 167 H (70-110) mg/dL 03/07/22 Range/Units 06:23 POC Glucose (mg/dL) 147 H (70-110) mg/dL
[2022-03-07 10:26] VITALS: TEMP 97.6
[2022-03-07 10:47] VITALS: BP 110/64; PULSE 66
[2022-03-07] MEDS: ASPIRIN 81 MG PO SCH (10:53)
[2022-03-07] MEDS: ATORVASTATIN 80 MG TAB PO SCH (10:54)
[2022-03-07] MEDS: CLOPIDOGREL 75 MG TAB PO SCH (10:55)
[2022-03-07] MEDS: FUROSEMIDE 40 MG TAB PO SCH (10:56)
[2022-03-07] MEDS: glipiZIDE 10 MG TAB PO SCH (10:57)
[2022-03-07] MEDS: POTASSIUM CHLORIDE ER 10 MEQ TAB.ER.PRT PO SCH (10:58)
[2022-03-07] MEDS: ENOXAPARIN 40 MG/0.4 ML SYRINGE SQ SCH (10:59)
[2022-03-07 11:00] LABS: Chol/HDL Ratio 2.88 Ratio; LDL Cholesterol,Calculated 28.4 mg/dL (0.0-131.0)
[2022-03-07] MEDS: METOPROLOL TARTRATE 50 MG TAB PO SCH (12:14)
[2022-03-07] MEDS: ISOSORBIDE MONONITRATE ER 30 MG TAB.ER.24H PO SCH (12:14)
[2022-03-07] MEDS: lisinopriL 20 MG TAB PO SCH (12:14)
--- NOTE | 2022-03-07 15:40 | P.DS ---
Providers Date of admission: 03/05/22 15:09 Expected date of discharge: 03/07/22 Attending physician: Matthew Vega Consults: 03/05/22 15:11 Consult Physician Urgent Consulting Provider: Betsy Wilkins Consult Reason/Comments: Intractable vertigo Do you want consulting provider notified?: Yes 03/05/22 18:09 Consult Physician Urgent Consulting Provider: Neptali Carranza Consult Reason/Comments: First degree heart block Do you want consulting provider notified?: Yes Primary care physician: [facility] Course: Chief Complaint: Head spinning This is a pleasant 72-year-old patient, follows with Dr. Brice. Chronic stable medical conditions include CHF EF not known, COPD, diabetes, hypertension, CAD with stent. Patient suddenly noticed that things are spinning around. He had some slurring of speech. Last her for a few hours. Could not walk. No ringing in the ears. No change in vision. Finally settled down. Computed tomography scan of the ER unremarkable. Feeling better this morning. Able to walk to the bathroom. Neurology consulted. Admitted with a diagnosis of acute labyrinthitis. 03/07/2022: Doing well. Back to his baseline. Counseled about smoking. MRI of the brain, carotid Doppler. Unremarkable. Cleared for discharge. 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 Lives alone. No alcohol. Smokes 2-3 cigars a day. Physical examination: VITAL SIGNS: 97.6, 77, 17, 110/64, 97% room air GENERAL: Sitting up in chair, comfortable EYES: Pupils equal. Conjunctiva normal. HEENT: External appearance of nose and ears normal, oral cavity grossly normal. NECK: JVD not raised; masses not palpable. HEART: First and second heart sounds are normal; no edema. LUNGS: Respiratory rate normal; clear to auscultation. ABDOMEN: Soft, nontender, liver spleen not palpable, no masses palpable. PSYCH: Alert and oriented x3; mood and affect normal. MUSCULOSKELETAL:No Clubbing/cyanosis;muscles-grossly intact, evidence of OA INVESTIGATIONS, reviewed in the clinical context: Brain MRi: Negative for acute event Carotid Doppler: No stenosis reported 2-D echocardiogram: EF 55%. WBC 8.9 hemoglobin 15.4 platelets 175 potassium 4.6 creatinine 0.86 Troponin I less than 0.012 EKG tracing personally reviewed by me-normal sinus rhythm. PVC. First-degree AV block. Chest x-ray film personally reviewed by me-no obvious infiltrate CT brain: Unremarkable Assessment and plan: -Acute labyrinthitis on in improved -Hyperlipidemia Lipitor -Chronic nicotine dependence, cigarette smoker Nicotine patch -CAD with stent Plavix, Lopressor -Diabetic peripheral neuropathy Neurontin -Diabetes mellitus type 2, chronically on insulin Lantus. Follow sliding scale insulin. trulicity. Metformin -Essential hypertension Lopressor, Zestril Disposition: Home Plan - Discharge Summary New Discharge Prescriptions: New Aspirin 81 mg PO DAILY tab Meclizine [Antivert] 25 mg PO TID PRN #20 tab PRN Reason: Vertigo Continue Dulaglutide [Trulicity] 1.5 mg SQ ORR glipiZIDE [Glucotrol] 10 mg PO DAILY lisinopriL [Zestril] 20 mg PO DAILY Metoprolol Tartrate [Lopressor] 50 mg PO BID Atorvastatin [Lipitor] 80 mg PO DAILY Clopidogrel [Plavix] 75 mg PO DAILY Furosemide [Lasix] 40 mg PO DAILY Gabapentin [Neurontin] 300 mg PO HS Insulin Glargine,Hum.rec.anlog [Lantus Solostar Pen] 55 units SQ HS Isosorbide Mononitrate ER [Imdur] 30 mg PO DAILY metFORMIN HCL 1,000 mg PO BID-W/MEALS Nitroglycerin Sl Tabs [Nitrostat] 0.4 mg SUBLINGUAL Q5M PRN PRN Reason: Chest Pain Potassium Chloride ER [K-Dur 10] 10 meq PO BID Discharge Medication List Atorvastatin [Lipitor] 80 mg PO DAILY 03/05/22 [History] Clopidogrel [Plavix] 75 mg PO DAILY 03/05/22 [History] Dulaglutide [Trulicity] 1.5 mg SQ ORR 03/05/22 [History] Furosemide [Lasix] 40 mg PO DAILY 03/05/22 [History] Gabapentin [Neurontin] 300 mg PO HS 03/05/22 [History] Insulin Glargine,Hum.rec.anlog [Lantus Solostar Pen] 55 units SQ HS 03/05/22 [History] Isosorbide Mononitrate ER [Imdur] 30 mg PO DAILY 03/05/22 [History] Metoprolol Tartrate [Lopressor] 50 mg PO BID 03/05/22 [History] Nitroglycerin Sl Tabs [Nitrostat] 0.4 mg SUBLINGUAL Q5M PRN 03/05/22 [History] Potassium Chloride ER [K-Dur 10] 10 meq PO BID 03/05/22 [History] glipiZIDE [Glucotrol] 10 mg PO DAILY 03/05/22 [History] lisinopriL [Zestril] 20 mg PO DAILY 03/05/22 [History] metFORMIN HCL 1,000 mg PO BID-W/MEALS 03/05/22 [History] Aspirin 81 mg PO DAILY tab 03/07/22 [Rx] Meclizine [Antivert] 25 mg PO TID PRN #20 tab 03/07/22 [Rx] Follow up Appointment(s)/Referral(s): Neptali Carranza MD [STAFF PHYSICIAN] - 1 Week (Office will call Pt with appointment ) Arden rBice MD [Primary Care Provider] - 1-2 days Patient Instructions/Handouts: Vertigo (DC) Discharge Disposition: HOME SELF-CARE
[2022-03-10] MEDS ORDERED: Dulaglutide [Trulicity] 1.5 MG/0.5 ML SQ SCH (09:00)
--- NOTE | 2022-03-15 10:12 | P.PN ---
Subjective Progress Note Date: 03/07/22 Patient was seen for a follow-up. Patient states the vertigo has resolved. No news concerns. Patient wants to go home. Objective - Vital Signs Vital signs: Vital Signs Temp 97.8 F 03/07/22 02:55 Pulse 69 03/07/22 02:55 Resp 17 03/07/22 02:55 BP 105/64 03/07/22 02:55 Pulse Ox 95 03/07/22 02:55 FiO2 Intake & Output 03/06/22 03/07/22 03/07/22 18:59 06:59 18:59 Output Total 250 Balance -250 Output: Urine 250 Other: Voiding Method Urinal # Voids 2 1 - Exam Patient's mental status, speech and language functions are normal. Cranial nerves are normal. Muscle strength is normal. No ataxia. Sensations normal. - Labs CBC & Chem 7: 03/05/22 11:22 03/05/22 11:22 Labs: Abnormal Lab Results - Last 24 Hours (Table) 03/06/22 03/06/22 03/06/22 Range/Units 12:15 17:33 21:06 POC Glucose (mg/dL) 272 H 112 H 167 H (70-110) mg/dL 03/07/22 Range/Units 06:23 POC Glucose (mg/dL) 147 H (70-110) mg/dL Assessment and Plan Assessment: * Acute onset of vertigo, with nausea, that lasted for several hours. Symptoms have mostly resolved. Although symptoms are suggestive of possible labyrinthitis, however patient admits to having transient slurred speech and transient diplopia, which raises concern for TIA in the posterior circulation. * Diabetes * Hypertension Plan: * Patient does have multiple vascular risk factors. TIA workup was performed. MRI of the brain was performed, which revealed age-related atrophic and chronic small vessel ischemic change. No acute intracranial process. I personally reviewed MRI, agree with the findings. * Carotid Doppler revealed no hemodynamically significant stenosis in the ICA bilaterally. Antegrade flow in both vertebral arteries. * 2-D echo revealed normal left ventricular size and systolic function with EF 55%. Mild mitral and tricuspid insufficiency. No definitive pericardial effusion. Possible fat pad. Left atrial size is mildly increased. No obvious embolic source. * Hemoglobin A1c 7.2. Recommend optimize control of diabetes to target A1c < 7.0. * Fasting lipid panel with cholesterol 86, LDL 28, HDL 30 and triglycerides 140. Continue Lipitor 80 mg daily. * B12 307, folate 9.4, both normal. * Telemetric monitoring. * Patient is already taking dual antiplatelet medication including aspirin 81 mg and Plavix 75 mg. These will be continued. No changes made as the test results are negative. * Suggest meclizine as needed for dizziness/vertigo. * Neurologically clear for discharge.
== END 2022-03-07 13:01 | disposition home or self-care (01) ==
LOC: EC 10:47 → 6NMEDSUR 15:09
PROVIDERS: ADMIT Hospitalist; ATTEND Hospitalist
DX: H83.09 Labyrinthitis, unspecified ear (principal); I44.0 Atrioventricular block, first degree; I11.0 Hypertensive heart disease with heart failure; I50.9 Heart failure, unspecified; J44.9 Chronic obstructive pulmonary disease, unspecified; E11.42 Type 2 diabetes mellitus with diabetic polyneuropathy; W19.XXXA Unspecified fall, initial encounter; H53.2 Diplopia; I25.10 Atherosclerotic heart disease of native coronary artery without angina pectoris; F17.290 Nicotine dependence, other tobacco product, uncomplicated; Z71.6 Tobacco abuse counseling; Z95.5 Presence of coronary angioplasty implant and graft; Z90.49 Acquired absence of other specified parts of digestive tract; E78.5 Hyperlipidemia, unspecified; F17.210 Nicotine dependence, cigarettes, uncomplicated; Z79.82 Long term (current) use of aspirin; R47.01 Aphasia; Z79.85 Long-term (current) use of injectable non-insulin antidiabetic drugs; Z98.890 Other specified postprocedural states; Z79.84 Long term (current) use of oral hypoglycemic drugs; Z79.02 Long term (current) use of antithrombotics/antiplatelets; Z79.4 Long term (current) use of insulin; Z79.899 Other long term (current) drug therapy
CPT/HCPCS: 96372 ×2; 99285; 36415; 93005; 97161; 80061; 80053; 82607; 82746; 83735; 84484; 85025; 85610; 85730; 83036; 71046; 93880; 70450; 70551; G0378 ×3; C8929; J1650 ×2; Q9950; 93306